=== PATIENT | female | born 1965 | race Caucasian/White ===

== ENCOUNTER 2018-09-02 19:27 | Emergency (ER) | payer BC ==
[2018-09-02 20:08] VITALS: BP 148/94
--- NOTE | 2018-09-02 20:41 | UC ---
General HPI - HPI Summary HPI Summary: PT WAS SCRATCHED ON THE FRONT OF HER R LOWER LEG 4 DAYS AGO BY HER INDOOR CAT WHEN SHE STARTLED IT. SHE HAD A SCAB AT THE SITE WHICH SHE SCRATCHED DUE TO ITCHING. NOW, THE SITE IS RED, WARM AND SWOLLEN. THE CAT IS UTD ON SHOTS. NO FEVER, CHILLS, NAUSEA OR SWOLLEN GLANDS IN GROIN. - History of Current Complaint Chief Complaint: UCSkin Stated Complaint: RT LEG SKIN CONCERN Time Seen by Provider: 09/02/18 20:16 Hx Obtained From: Patient Hx Last Menstrual Period: about age 48 Onset/Duration: Gradual Onset Timing: Constant Pain Intensity: 0 - Allergy/Home Medications Allergies/Adverse Reactions: Allergies Allergy/AdvReac Type Severity Reaction Status Date / Time enalapril Allergy Hives Verified 09/02/18 20:09 nickel Allergy Rash Uncoded 09/02/18 20:09 Home Medications: Home Medications Albuterol HFA INHALER* [Ventolin HFA Inhaler*] 2 puff INH Q4H PRN 09/02/18 [ History Confirmed 09/02/18] Irbesartan (NF) [Avapro (NF)] 150 mg PO DAILY 09/02/18 [History Confirmed ] Montelukast Sodium TAB* [Singulair TAB*] 10 mg PO DAILY 09/02/18 [History Confirmed 09/02/18] Rabeprazole Sodium [Aciphex] 20 mg PO DAILY 09/02/18 [History Confirmed 09/02/18 ] Terazosin CAP* [Hytrin CAP*] 10 mg PO BID 09/02/18 [History Confirmed 09/02/18] amLODIPine TAB* [Norvasc 5 mg TAB*] 10 mg PO DAILY 09/02/18 [History Confirmed 09/02/18] busPIRone TAB* [Buspar TAB*] 10 mg PO PRN 09/02/18 [History] PMH/Surg Hx/FS Hx/Imm Hx Cardiovascular History: Hypertension Respiratory History: Asthma Psychological History: Depression - Surgical History Surgical History: Yes Surgery Procedure, Year, and Place: GALLBLADDER 1990. HEART CATHERIZATION 2011. NOVASURE ABLATION 2011 - Family History Known Family History: Positive: Non-Contributory - Social History Alcohol Use: Occasionally Substance Use Type: None Smoking Status (MU): Former Smoker When Did the Patient Quit Smoking/Using Tobacco: Quit 30 yrs - Immunization History Most Recent Tetanus Shot: 2013 Hx Tetanus, Diphtheria Vaccination: Yes - 4 YEARS AGO Vaccination Up to Date: Yes Review of Systems All Other Systems Reviewed And Are Negative: Yes Constitutional: Positive: Negative Skin: Positive: Rash - R LOWER LEG Eyes: Positive: Negative ENT: Positive: Negative Respiratory: Positive: Negative Cardiovascular: Positive: Negative Gastrointestinal: Positive: Negative Genitourinary: Positive: Negative Motor: Positive: Negative Neurovascular: Positive: Negative Musculoskeletal: Positive: Negative Neurological: Positive: Negative Psychological: Positive: Negative Is Patient Immunocompromised?: No Physical Exam Triage Information Reviewed: Yes Appearance: Well-Appearing Vital Signs: Initial Vital Signs Temp 98.5 F 09/02/18 19:59 Pulse 93 09/02/18 19:59 Resp 20 09/02/18 19:59 BP 148/94 09/02/18 19:59 Pulse Ox 95 09/02/18 19:59 Vital Signs Reviewed: Yes Eyes: Positive: Conjunctiva Clear ENT: Positive: Normal ENT inspection Neck: Positive: Supple, Nontender, No Lymphadenopathy Respiratory: Positive: Lungs clear, Normal breath sounds Cardiovascular: Positive: RRR, No Murmur Abdomen Description: Positive: Nontender, No Organomegaly, Soft, Other: - NO INGUINAL ADENOPATHY.. Negative: Distended, Guarding Bowel Sounds: Positive: Present Musculoskeletal: Positive: ROM Intact Neurological: Positive: Alert Psychological: Positive: Age Appropriate Behavior Skin Exam: Normal, Other - Lower half R anterior leg is red, warm and mildly swollen. No streaking. Course/Dx - Differential Dx - Multi-Symptom Differential Diagnoses: Other - cat scratch fever, cellulitis - Diagnoses Provider Diagnosis: Cellulitis of right anterior lower leg Discharge - Sign-Out/Discharge Documenting (check all that apply): Patient Departure All imaging exams completed and their final reports reviewed: No Studies - Discharge Plan Condition: Stable Disposition: HOME Prescriptions: Cephalexin CAP* [Keflex CAP*] 500 mg PO TID 10 Days #30 cap Patient Education Materials: Cellulitis (ED) Referrals: Cherise Frey PA [Primary Care Provider] - 3 Days Additional Instructions: GO TO ER FOR WORSENING - Billing Disposition and Condition Condition: STABLE Disposition: Home - Attestation Statements Provider Attestation: Per institutional requirements, I have reviewed the chart, however, I was not consulted specifically or made aware of this patient by the midlevel provider. I did not personally evaluate, interact with , or disposition this patient.
[2018-09-02] MEDS ORDERED: Cephalexin CAP* 500 MG PO ONE ×2 (20:51→20:52)
== END 2018-09-02 21:02 | disposition home or self-care (01) ==
LOC: UCCORT 19:27
DX: L03.115 Cellulitis of right lower limb (principal); Z88.8 Allergy status to other drugs, medicaments and biological substances; I10 Essential (primary) hypertension; Z87.891 Personal history of nicotine dependence
CPT/HCPCS: 99212; A9270-GY; G0463

== ENCOUNTER 2019-09-03 09:33 | Emergency (ER) | payer BC ==
[2019-09-03 10:59] VITALS: BP 153/81
--- NOTE | 2019-09-03 11:21 | UC ---
Respiratory Complaint HPI - HPI Summary HPI Summary: Patient is 54 year old woman , who present today to the urgent care with sinus symptoms for past 2 days. Right side of face feels pressure and thick green mucous. Woke up Paul night coughing with chills. She reports MAXIMUM TEMPERATURE of about 100F. There is associated cough and sore throat. She feels that her right ear is painful as well. Denies any sick contacts Denies any chest pain or shortness of breath .Denies any abdominal pain , nausea or vomiting , diarrhea or constipation. - History of Current Complaint Chief Complaint: UCGeneralIllness Stated Complaint: SINUS COMPLAINT Time Seen by Provider: 09/03/19 11:13 Hx Obtained From: Patient Hx Last Menstrual Period: about age 48 Pain Intensity: 4 - Allergies/Home Medications Allergies/Adverse Reactions: Allergies Allergy/AdvReac Type Severity Reaction Status Date / Time enalapril Allergy Hives Verified 09/03/19 10:59 nickel Allergy Rash Uncoded 09/03/19 10:59 Home Medications: Home Medications Olmesartan Medoxomil [Benicar] 5 mg PO DAILY 09/03/19 [History Confirmed ] dilTIAZem HCl [Cartia Xt] 180 mg PO DAILY 09/03/19 [History Confirmed 09/03/19] PMH/Surg Hx/FS Hx/Imm Hx - Additional Past Medical History Additional PMH: Past Medical History : Hypertension, asthma, GERD Past Surgical History: Cholecystectomy, cardiac catheterization ablation in 2011 Family History : non contributory Social History : Rare alcohol, former smoker, no drug use. Previously Healthy: Yes - Surgical History Surgical History: Yes Surgery Procedure, Year, and Place: GALLBLADDER 1990. HEART CATHERIZATION 2011. NOVASURE ABLATION 2011 - Family History Known Family History: Positive: Non-Contributory - Social History Alcohol Use: Rare Substance Use Type: None Smoking Status (MU): Former Smoker When Did the Patient Quit Smoking/Using Tobacco: Quit 30 yrs - Immunization History Most Recent Tetanus Shot: 2013 Hx Tetanus, Diphtheria Vaccination: Yes - 4 YEARS AGO Vaccination Up to Date: Yes Review of Systems All Other Systems Reviewed And Are Negative: Yes Constitutional: Positive: Fever, Fatigue Skin: Positive: Negative Eyes: Positive: Negative ENT: Positive: Sore Throat, Ear Ache - Right, Nasal Discharge - Green, Sinus Congestion Respiratory: Positive: Cough - Productive Cardiovascular: Positive: Negative Gastrointestinal: Positive: Negative Genitourinary: Positive: Negative Motor: Positive: Negative Neurovascular: Positive: Negative Musculoskeletal: Positive: Negative Neurological: Positive: Negative Psychological: Positive: Negative Is Patient Immunocompromised?: No Physical Exam - Summary Physical Exam Summary: Physical Exam: Const: Appears well. No signs of apparent distress present. Alert and oriented x 3. Musculo: Walks with a normal gait. Head/Face: Atraumatic, normocephalic on inspection. Eyes: EOMI and PERRLA in both eyes. Conjunctivae clear. No discharge noted ENT: Hearing normal, TM normal appearing bilaterally, non bulging , non erythematous . N Minimal tenderness to palpation on right maxillary sinus. There is pharyngeal erythema without any exudates . There is tonsilith Uvula is midline. Tender right-sided submandibular lymphadenopathy noted. Respiratory: Respirations are unlabored. Lungs clear to auscultation bilaterally, no wheezing , rhonchi or rales noted . CVS: Regular rate and Rhythm, S1S2 normal , no murmurs identified. Extremities: Peripheral circulation is grossly normal. Pulses 2+ Abdomen : Soft non tender , nondistended , Bowel sounds present . No guarding , rebound tenderness or rigidity noted. Skin: No lesions or rash located on the upper extremities or on the lower extremities. Neuro: Cranial nerves II to XII intact, motor and sensory intact. DTR Intact bilaterally. Mood is normal. Affect is normal. Triage Information Reviewed: Yes Vital Signs: Initial Vital Signs Temp 99.8 F 09/03/19 10:54 Pulse 79 09/03/19 10:54 Resp 18 09/03/19 10:54 BP 153/81 09/03/19 10:54 Pulse Ox 100 09/03/19 10:54 Vital Signs Reviewed: Yes Respiratory Course/Dx - Course Course Of Treatment: Rapid strep test: neg Flu test: neg Likely viral syndrome causing sinus pressure. - Differential Dx/Diagnosis Differential Diagnosis/HQI/PQRI: Sinusitis Provider Diagnosis: Viral upper respiratory illness Discharge ED - Sign-Out/Discharge Documenting (check all that apply): Patient Departure All imaging exams completed and their final reports reviewed: No Studies - Discharge Plan Condition: Stable Disposition: HOME Prescriptions: Fluticasone NASAL SPRAY 50MCG* [Flonase NASAL SPRAY 50MCG*] 1 spray BOTH NARES DAILY 7 Days #1 btl Patient Education Materials: Sinusitis (ED), Viral Syndrome (ED) Referrals: Cherise Frey PA [Primary Care Provider] - 3 Days Additional Instructions: Please start taking the medication as prescribed to the pharmacy . Supprotive care with Throat lozenges and salt water gargles will be helpful for sore throat Tylenol or ibuprofen as needed for fever Follow up with your primary care doctor in 2 - 3 days. Patients blood pressure slightly high in Urgent care today , plan follow up with PCP for better control Return to Urgent care / ER if symptoms get worse. - Billing Disposition and Condition Condition: STABLE Disposition: Home
[2019-09-03 11:54] LABS: Influenza A Molecular NEGATIVE (Negative); Influenza B Molecular NEGATIVE (Negative)
== END 2019-09-03 12:20 | disposition home or self-care (01) ==
LOC: UCCORT 09:33
DX: J06.9 Acute upper respiratory infection, unspecified (principal); H92.01 Otalgia, right ear; I10 Essential (primary) hypertension; J45.909 Unspecified asthma, uncomplicated; Z87.891 Personal history of nicotine dependence; Z79.899 Other long term (current) drug therapy; Z88.8 Allergy status to other drugs, medicaments and biological substances; Z91.09 Other allergy status, other than to drugs and biological substances
CPT/HCPCS: 87651; 99212; G0463